=== PATIENT | female | born 2005 | race African-American/Black ===

== ENCOUNTER → 2023-12-15 10:58 | Outpatient (CLI) | payer OTHER, SELFPAY ==
--- NOTE | 2023-12-15 11:00 | DI.RAD.S_ITS ---
PROCEDURE: FL UPPER GI SERIES INDICATIONS: GERD/ABDOMINAL DISTENSION COMPARISON: None. 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 No suspicious abdominal calcifications. Visualized solid organ contours appear normal. Bony structures appear unremarkable. Esophagus: Esophageal mucosa is normal on air-contrast views. On single-contrast views, there is normal esophageal peristalsis. No strictures, extrinsic mass effects, or diverticula. No hiatal hernia or elicited gastroesophageal reflux. There is normal transit of a calibrated barium tablet through the esophagus. Stomach: The stomach is normally distensible, with normal rugal fold thickness. No mucosal masses or ulcers. Pylorus and duodenal bulb appear normal in morphology. Duodenal folds are normal in thickness as well. IMPRESSION: No hiatal hernia. No esophageal dysmotility. No gastroesophageal reflux elicited. Dictated by: Sami Trent M.D. on 12/15/2023 at 15:28 Approved by: Sami Trent M.D. on 12/15/2023 at 15:29
== END ==
PROVIDERS: Referring Provider Internal Medicine; Visit Provider Internal Medicine
DX: K21.9 Gastro-esophageal reflux disease without esophagitis (principal); R14.0 Abdominal distension (gaseous)
CPT/HCPCS: 74240